=== PATIENT | female | born 1955 | race Caucasian/White ===

== ENCOUNTER → 2019-02-11 | Outpatient (CLI) | payer BC ==
--- NOTE | 2019-02-11 14:25 | WOMENS IMAGING REPORT ---
EXAM DESCRIPTION: BILAT SCREENING MAMMO W/CAD COMPLETED DATE/TIME: 02/11/2019 8:53 am REASON FOR STUDY: Z12.31 ENCOUNTER FOR SCREENING MAMMOGRAM FOR MALIGNANT NEOPLASM OF [id number] E NCNTR SCREEN MAMMOGRAM FOR MALIGNANT NEOPLASM OF [place] COMPARISON: None. EXAM PARAMETERS: Standard craniocaudal and mediolateral oblique views of each breast recorded using digital acquisition. Read with the assistance of CAD. .[facility] - [employer]er Version 9.2 LIMITATIONS: None. FINDINGS: RIGHT BREAST MASSES: There is a circumscribed oval mass in the upper-outer quadrant, located 9 to 10 cm from the n ipple. CALCIFICATIONS: No new or suspicious calcifications. ARCHITECTURAL DISTORTION: None. DEVELOPING DENSITY: None. ASYMMETRY: None noted. OTHER: No other significant findings. LEFT BREAST MASSES: No suspicious masses. CALCIFICATIONS: No new or suspicious calcifications. ARCHITECTURAL DISTORTION: None. DEVELOPING DENSITY: None. ASYMMETRY: None noted. OTHER: No other significant findings. IMPRESSION: Circumscribed oval mass in the upper-outer quadrant of the right breast. This may be a lymph node. No worrisome mammographic findings in the left breast. 0 Incomplete: Needs Additional Imaging Evaluation and/or prior Mammograms for Comparison. BREAST DENSITY: b. There are scattered areas of fibroglandular density. BIRAD: ASSESSMENT: 0 Incomplete: Needs Additional Imaging Evaluation and/or prior Mammograms for C omparison. RECOMMENDATION: RECOMMENDED FOLLOW-UP: Recommend additional evaluation with ultrasound of the right breast. Recommend routine screening mammography of the left breast. The patient will be contacted for additional imaging. COMMENT: The patient has been notified of the results by letter per [place] requirements. Additional no tification policies are in place for contacting patient with suspicious or incomplete findings. Quality ID #[id number]: The [employer] recommends an annual screening mammogram for women aged 40 years or over. This facility utilizes a reminder system to ensure that all patients receive reminder letters, and/or direct phone calls for appointments. This includes reminders for routine scr eening mammograms, diagnostic mammograms, or other Breast Imaging Interventions when appropriate. Th is patient will be placed in the appropriate reminder system. TECHNICAL DOCUMENTATION: FINDING NUMBER: (1) ASSESSMENT: (1) JOB ID: [id number] [employer]- All Rights Reserved Reading location - IP/workstation name: [facility]
== END ==
LOC: WI 08:19
PROVIDERS: ATTEND Physician Assistant
DX: Z12.31 Encounter for screening mammogram for malignant neoplasm of breast (principal)
CPT/HCPCS: 77067

== ENCOUNTER → 2019-02-15 | Outpatient (CLI) | payer BC ==
--- NOTE | 2019-02-15 14:27 | WOMENS IMAGING REPORT ---
EXAM DESCRIPTION: U/S BREAST UNILAT LIMITED COMPLETED DATE/TIME: 02/15/2019 12:03 pm REASON FOR STUDY: N63.11 UNSPECIFIED LUMP IN THE RIGHT BREAST, UPPER OUTER QUADRANT N63.11 UNSPECIF IED LUMP IN THE RIGHT BREAST, UPPER OUTER CELESTINO COMPARISON: None. TECHNIQUE: Real-time and static grayscale imaging performed of the right breast targeted to the area of mammographic concern. Selected color Doppler images recorded. LIMITATIONS: None. FINDINGS: MASS: In the far upper outer quadrant, 10 to 11 o'clock position the 6 x 7 mm intramammary lymph node is present with central hilar fat. OTHER: No other significant finding. IMPRESSION: Benign-appearing intramammary lymph node BIRAD: 2 Benign findings. RECOMMENDATION: RECOMMENDED FOLLOW-UP: Please continue yearly bilateral screening mammography 2019 COMMENT: The [employer] ([employer]) has developed recommendations for screening MRI of the breasts in certain patient populations, to be used in conjunction with mammography. Breast MRI s urveillance may be appropriate for women with more than 20% lifetime risk of developing breast cancer as determined by genetic testing, significant family history of the disease, or history of mantle r adiation for Hodgkins Disease. [employer]CR Practice Guidelines 2008. TECHNICAL DOCUMENTATION: JOB ID: [id number] [employer]- All Rights Reserved Reading location - IP/workstation name: [email or web address]
== END ==
LOC: WI 11:20
PROVIDERS: ATTEND Physician Assistant
DX: N63.11 Unspecified lump in the right breast, upper outer quadrant (principal)
CPT/HCPCS: 76642